=== PATIENT | female | born 2000 | race Caucasian/White ===

== ENCOUNTER 2020-07-10 16:02 | Emergency (ER) | payer BC, OTHER ==
[~2020-07-10] VITALS: Ht 162.6 cm; Wt 78.0 kg
[2020-07-10 16:58] LABS: URINE BILIRUBIN NEGATIVE (Negative); URINE BLOOD 3+ (Negative); URINE CLARITY CLEAR; URINE COLOR YELLOW; URINE GLUCOSE-RANDOM* NEGATIVE (Negative); URINE KETONES NEGATIVE (Negative); URINE LEUKOCYTES-REFLEX NEGATIVE (Negative); URINE NITRITE-REFLEX NEGATIVE (Negative); URINE PROTEIN (DIPSTICK) NEGATIVE (Negative); URINE UROBILINOGEN 0.2 E.U./dl (0.2-1.0)
[2020-07-10 17:08] LABS: SQUAMOUS >10 Many /LPF (0-3)
[2020-07-10 17:09] LABS: BACTERIA-REFLEX None Seen /HPF (None Seen); CASTS None Seen /LPF (None Seen); CRYSTALS None Seen /LPF (None Seen); MUCUS 0-3 Light strn/LPF (None Seen); URINE RBC >20 Many /HPF (0-2); URINE WBC-REFLEX 0-5 Rare /HPF (0-5)
[2020-07-10 17:42] LABS: ABSOLUTE NEUTROPHILS 8.3 thou/uL (1.4-8.2); BASOPHILS 0.7 % (0.0-2.0); EOSINOPHILS 1.9 % (0.0-3.0); HEMATOCRIT 39.1 % (37.0-47.0); HEMOGLOBIN 12.7 gm/dL (12.0-15.0); LYMPHOCYTES 20.9 % (24.0-44.0); MCH 26.6 pg (26.0-34.0); MCHC 32.5 g/dL (28.0-37.0); MCV 81.8 fL (80.0-100.0); MONOCYTES 5.7 % (1.0-8.0); PLATELET COUNT 375 thou/uL (150-400); POLYS 70.8 % (36.0-66.0); RBC 4.78 mil/uL (4.20-5.00); RDW 15.6 % (10.5-14.5); WBC 11.7 thou/uL (4.0-11.0)
[2020-07-10 17:47] LABS: ANION GAP 10 mmol/L (7-16); BUN 18 mg/dL (7-18); CALCIUM 9.2 mg/dL (8.5-10.1); CHLORIDE 103 mmol/L (98-107); CO2 30 mmol/L (21-32); CREATININE 0.7 mg/dL (0.6-1.0); GLUCOSE 114 mg/dL (74-106); SODIUM 143 mmol/L (136-145)
[2020-07-10 17:59] LABS: ALBUMIN 4.1 g/dL (3.4-5.0); LIPASE 121 U/L (73-393); SGOT 57 U/L (15-37); SGPT 70 U/L (14-59); TOTAL BILIRUBIN 0.6 mg/dL (0.2-1.0); TROPONIN-I <0.06 ng/mL (<0.06)
[2020-07-10] MEDS ORDERED: BENTYL 10 MG CA10 M1 PO (19:21)
[2020-07-10 19:57] VITALS: BP 102/68
--- NOTE | 2020-07-12 07:43 | EKG ---
[place] [address] [facility] [address] ELECTROCARDIOGRAM REPORT Name: MARYURI MEAD Room #: DEP Alin#: [id number] Admission: 07/10/20 Attend Phys: Discharge: 07/10/20 Date of : 89 Report #: [id number] [facility] ED Test Date: 2020-07-10 Test Time: 17:19:45 Pat Name: MARYURI MEAD Department: Room: Gender: F Caponizer: jayda : 2000 Requested By: Ariella Massey Order Number: [id number] MD: Juan David Rojas Measurements Intervals Angelica Rate: 76 P: 25 SD: 110 QRS: -10 QRSD: 108 T: 1 QT: 417 QTc: 469 Interpretive Statements Sinus rhythm Borderline short SD interval Low voltage, precordial leads Borderline T abnormalities, inferior leads No previous ECG available for comparison Electronically Signed On 07-12-2020 7:43:18 [employer]OOM MACHINE OPERATOR by Juan David Rojas [email or web address] <ELECTRONICALLY SIGNED> By: Juan David Rojas MD, [facility] 07/12/20 0743 1719 1719 Juan David Rojas MD, FACC /EPI
== END 2020-07-10 19:59 | disposition home or self-care (01) ==
LOC: ER 16:02
PROVIDERS: Physician Assistant
DX: K80.50 Calculus of bile duct without cholangitis or cholecystitis without obstruction (principal); R79.89 Other specified abnormal findings of blood chemistry

== ENCOUNTER 2020-08-01 21:33 | Emergency (ER) | payer BC, OTHER ==
[~2020-08-01] VITALS: Ht 165.1 cm; Wt 79.8 kg
[2020-08-01 21:33] VITALS: BP 100/61
[~2020-08-01 21:33] MED LIST: BENTYL 10 MG CA10 M1 PO
== END 2020-08-01 21:43 | disposition left against medical advice (07) ==
LOC: ER 21:33
DX: R10.11 Right upper quadrant pain (principal); Z53.21 Procedure and treatment not carried out due to patient leaving prior to being seen by health care provider

== ENCOUNTER 2021-02-08 06:22 | Emergency (ER) | payer BC, OTHER ==
[~2021-02-08] VITALS: Ht 165.1 cm; Wt 81.7 kg
[2021-02-08 07:41] LABS: HEMATOCRIT 42.7 % (37.0-47.0); HEMOGLOBIN 14.1 gm/dL (12.0-15.0); MCH 28.5 pg (26.0-34.0); MCHC 33.1 g/dL (28.0-37.0); RBC 4.96 mil/uL (4.20-5.00); RDW 13.2 % (10.5-14.5); WBC 6.8 thou/uL (4.0-11.0)
[2021-02-08 07:56] LABS: CALCIUM 9.2 mg/dL (8.5-10.1); CREATININE 0.8 mg/dL (0.6-1.0); POTASSIUM 4.1 mmol/L (3.5-5.1)
[2021-02-08 08:02] LABS: ALBUMIN 3.8 g/dL (3.4-5.0); TOTAL BILIRUBIN 0.7 mg/dL (0.2-1.0); TOTAL PROTEIN 7.9 g/dL (6.4-8.2)
[2021-02-08 09:05] VITALS: BP 131/78
[2021-02-08 09:42] LABS: URINE BILIRUBIN NEGATIVE (Negative); URINE BLOOD NEGATIVE (Negative); URINE CLARITY CLOUDY; URINE COLOR YELLOW; URINE GLUCOSE-RANDOM* NEGATIVE (Negative); URINE KETONES NEGATIVE (Negative); URINE LEUKOCYTES-REFLEX NEGATIVE (Negative); URINE NITRITE-REFLEX NEGATIVE (Negative); URINE PROTEIN (DIPSTICK) NEGATIVE (Negative); URINE SPECIFIC GRAVITY >= 1.030 (1.005-1.035); URINE UROBILINOGEN 0.2 E.U./dl (0.2-1.0)
[2021-02-08] MEDS ORDERED: ZOFRAN ODT4 MG PO (09:52)
== END 2021-02-08 10:06 | disposition home or self-care (01) ==
LOC: ER 06:22
PROVIDERS: Student in an Organized Health Care Education/Training Program
DX: R10.11 Right upper quadrant pain (principal); R10.12 Left upper quadrant pain; R11.10 Vomiting, unspecified; Z20.822 Contact with and (suspected) exposure to COVID-19